=== PATIENT | female | born 1960 ===

== ENCOUNTER 2021-02-01 07:00 | Inpatient (IN) | payer OTHER ==
[~2021-02-01] VITALS: Ht 165.1 cm; Wt 76.2 kg
[2021-02-01] MEDS ORDERED: SYNTHROID50 MCG PO (08:31)
[2021-02-01] MEDS ORDERED: CRESTOR20 MG PO (08:32)
== END 2021-02-08 14:43 | disposition home or self-care (01) | DRG 470 ==
LOC: O/R 02-06 06:50 → SURH 02-06 07:00
PROVIDERS: ADMIT Orthopaedic Surgery; ATTEND Orthopaedic Surgery
PROC: 0SRC0J9 Replacement of Right Knee Joint with Synthetic Substitute, Cemented, Open Approach (ICD-10-PCS; principal; 2021-02-06 07:00)
DX: M17.11 Unilateral primary osteoarthritis, right knee (principal)